=== PATIENT | male | born 1940 | race Caucasian/White ===

== ENCOUNTER 2019-02-17 07:44 | Day surgery (SDC) | payer OTHER, BC ==
[2019-02-17 08:38] VITALS: BMI 36.2
[2019-02-17 09:48] VITALS: TEMP 97.3
[2019-02-17 10:13] VITALS: PULSE 66
[2019-02-17 11:28] VITALS: BP 164/70
--- NOTE | 2019-02-18 16:48 | PATH ---
Surgical Pathology Report Patient Name: DARLINE YOUSIF [facility]. Rec. #: [id number] /Age/Gender: 1940 (Age: 78) / M Account: [id number] Location: [facility]-ENDOSCOPY Taken: 02/17/2019 Received: 02/17/2019 Reported: 02/18/2019 Physicians: Migel Palomino M.D. Specimen(s) Received A: DUODENUM B: GASTRIC/ ANTRUN ULCER C: ANTRUM D: POLYPS TRANSVERSE COLON E: CECAL POLYP F: RIGHT COLON POLYP G: RECTAL POLYP Clinical History Left upper quadrant pain, satiety, weight loss, adenoma surveillance Postoperative diagnosis: Gastric antrum ulcer, colon polyps Final Diagnosis A. 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 NO HISTOLOGIC EVIDENCE OF INTRAEPITHELIAL LYMPHOCYTOSIS. B. GASTRIC ANTRUM ULCER, BIOPSY: GASTRIC MUCOSA WITH REACTIVE GASTROPATHY. IMMUNOSTAIN FOR H. PYLORI IS NEGATIVE. NEGATIVE FOR INTESTINAL METAPLASIA. C. ANTRUM, BIOPSY: GASTRIC MUCOSA WITH MILD CHRONIC GASTRITIS AND REACTIVE GASTROPATHY. IMMUNOSTAIN FOR H. PYLORI IS NEGATIVE. NEGATIVE FOR INTESTINAL METAPLASIA. D. TRANSVERSE COLON POLYPS, POLYPECTOMY: TUBULAR ADENOMA, ONE FRAGMENT. SEPARATE COLONIC MUCOSA WITH FOCAL SURFACE HYPERPLASTIC CHANGE. E. CECUM POLYP, BIOPSY: COLONIC MUCOSA WITH REACTIVE LYMPHOID AGGREGATE AND SURFACE HYPERPLASTIC CHANGE. F. RIGHT COLON POLYP, POLYPECTOMY: TUBULAR ADENOMA. G. RECTAL POLYP, BIOPSY: COLONIC MUCOSA WITH FOCAL SURFACE HYPERPLASTIC CHANGE. Electronically Signed Rica Sequeira M.D. Gross Description A. Received in formalin, labeled "biopsy second portion of duodenum and duodenal bulb" are 4 martínez, irregular portions of soft tissue ranging from 0.2-0.5 cm. in greatest dimension. The specimens are submitted in toto in one cassette. B. Received in formalin, labeled "biopsy gastric antrum ulcer" are 3 martínez, irregular portions of soft tissue ranging from 0.1-0.3 cm. in greatest dimension. The specimens are submitted in toto in one cassette. C. Received in formalin, labeled "biopsy antrum" is a martínez, irregular portion of soft tissue measuring 0.4 cm. in greatest dimension. The specimen is submitted in toto in one cassette. D. Received in formalin, labeled "biopsy polyps transverse colon" are 5 martínez, irregular portions of soft tissue ranging from 0.1-0.3 cm. in greatest dimension. The specimens are submitted in toto in one cassette. E. Received in formalin, labeled "biopsy cecal polyp" are 2 martínez, irregular portions of soft tissue measuring 0.2 and 0.4 cm. in greatest dimension. The specimens are submitted in toto in one cassette. F. Received in formalin, labeled "biopsy right colon polyp" are 3 martínez, irregular portions of soft tissue ranging from 0.1-0.4 cm. in greatest dimension. The specimens are submitted in toto in one cassette. G. Received in formalin, labeled "biopsy rectal polyp" is a martínez, irregular portion of soft tissue measuring 0.7 cm. in greatest dimension. The specimen is submitted in toto in one cassette. 02/17/2019 [facility]02/17/2019
== END 2019-02-17 11:05 | disposition home or self-care (01) ==
LOC: JASU-ENDO 07:44
PROVIDERS: ATTEND Internal Medicine Gastroenterology
PROC: 0DBP8ZX Excision of Rectum, Via Natural or Artificial Opening Endoscopic, Diagnostic (ICD-10-PCS; 2019-02-17)
PROC: 0DBH8ZX Excision of Cecum, Via Natural or Artificial Opening Endoscopic, Diagnostic (ICD-10-PCS; 2019-02-17)
PROC: 0DB68ZX Excision of Stomach, Via Natural or Artificial Opening Endoscopic, Diagnostic (ICD-10-PCS; 2019-02-17)
PROC: 0DBK8ZX Excision of Ascending Colon, Via Natural or Artificial Opening Endoscopic, Diagnostic (ICD-10-PCS; principal; 2019-02-17 08:45)
DX: Z12.11 Encounter for screening for malignant neoplasm of colon (principal); Z86.010 Personal history of colon polyps; R63.4 Abnormal weight loss; D12.2 Benign neoplasm of ascending colon; D12.0 Benign neoplasm of cecum; D12.3 Benign neoplasm of transverse colon; K62.1 Rectal polyp; K57.30 Diverticulosis of large intestine without perforation or abscess without bleeding; K25.9 Gastric ulcer, unspecified as acute or chronic, without hemorrhage or perforation; I10 Essential (primary) hypertension; E11.9 Type 2 diabetes mellitus without complications; E66.01 Morbid (severe) obesity due to excess calories

== ENCOUNTER 2019-11-19 09:14 | Day surgery (SDC) | payer OTHER, BC ==
[2019-11-19 09:14] VITALS: BMI 35.4
[2019-11-19 11:25] VITALS: TEMP 97.9
[2019-11-19 12:04] VITALS: BP 116/67; PULSE 61
--- NOTE | 2019-11-22 19:01 | PATH ---
Surgical Pathology Report Patient Name: DARLINE YOUSIF [facility]. Rec. #: [id number] /Age/Gender: 1940 (Age: 79) / M Account: [id number] Location: [facility]-ENDOSCOPY Taken: 11/19/2019 Received: 11/19/2019 Reported: 11/22/2019 Physicians: Migel Palomino M.D. Specimen(s) Received ANTRUM Clinical History History of gastric antrum Postoperative diagnosis: Healed ulcer, gastritis Final Diagnosis STOMACH, ANTRUM, BIOPSY: GASTRIC ANTRAL MUCOSA WITH MILD CHRONIC GASTRITIS. IMMUNOHISTOCHEMICAL STAIN FOR H. PYLORI IS NEGATIVE. Positive and negative controls (internal if applicable) show appropriate results. Electronically Signed Huma Porras M.D. Gross Description Received in formalin, labeled "biopsy antrum" are 4 martínez, irregular portions of soft tissue ranging from 0.1-0.7 cm. in greatest dimension. The specimens are submitted in toto in one cassette. /11/19/2019 [facility]11/19/2019
== END 2019-11-19 11:50 | disposition home or self-care (01) ==
LOC: JASU-ENDO 09:14
PROVIDERS: ATTEND Internal Medicine Gastroenterology
PROC: 0DB68ZX Excision of Stomach, Via Natural or Artificial Opening Endoscopic, Diagnostic (ICD-10-PCS; 2019-11-19)
PROC: 0DB38ZX Excision of Lower Esophagus, Via Natural or Artificial Opening Endoscopic, Diagnostic (ICD-10-PCS; principal; 2019-11-19 10:00)
DX: K29.50 Unspecified chronic gastritis without bleeding (principal); K44.9 Diaphragmatic hernia without obstruction or gangrene; K21.9 Gastro-esophageal reflux disease without esophagitis
CPT/HCPCS: 88305-TC; 88342-TC